=== PATIENT | female | born 1990 | race Caucasian/White ===

== ENCOUNTER 2018-11-12 14:17 | Emergency (ER) | payer MEDICAID ==
[~2018-11-12] VITALS: Ht 160 cm; Wt 67.6 kg
[2018-11-12 14:24] VITALS: BP 128/79
--- NOTE | 2018-11-12 14:27 | NUR ---
VSS, PT AMB TO LOBBY, NO DISTRESS.
--- NOTE | 2018-11-12 15:33 | NUR ---
PT RE-EVALUATED, VSS. AMB TO LOBBY.
--- NOTE | 2018-11-12 16:51 | NUR ---
PT AMBULATES TO BED 3
--- NOTE | 2018-11-12 16:59 | NUR ---
28Y/F BIB SELF WITH C/O ABNORMAL VAGINAL BLEEDING WITH ABD PAIN, NAUSEA, AND VOMITING X 2 WEEKS. PAIN 8/10, INTERMITTENT. ACTIVE X4 QUAD, LBM: 11/11/18, ACTIVE BOWEL SOUNDS, PT IS AAOX4, VSS, BED DOWN , BEDRAIL UP X 1, ER MD AWARE AND NOTIFIED OF PT STATUS. HX: DENIES RX: DENIES
--- NOTE | 2018-11-12 17:35 | NUR ---
LAB AT BEDSIDE
[2018-11-12 17:54] LABS: BILIRUBIN,URINE NEGATIVE (NEGATIVE); BLOOD, URINE 3+ (NEGATIVE); COLOR,URINE YELLOW (YELLOW); LEUKOCYTE ESTERASE ,URINE NEGATIVE (NEGATIVE); NITRITE, URINE NEGATIVE (NEGATIVE); UGLUCOSE NEGATIVE (NEGATIVE)
[2018-11-12 17:55] LABS: APPEARANCE,URINE HAZY (CLEAR)
[2018-11-12 17:57] LABS: RBC,URINE 20-50 /HPF (0-5); WBC,URINE 0-5 /HPF (0-5)
[2018-11-12 18:01] LABS: BARBITURATE, URINE NEG. ng/ml (NEG <=200); BENZODIAZEPINE, URINE NEG. ng/mL (NEG <=200); CANNABINOID, URINE NEG. ng/mL (NEG <=50); COCAINE, URINE NEG. ng/mL (NEG <=300); OPIATE, URINE NEG. ng/mL (NEG <=2000); PHENCYCLIDINE SCREEN,URINE NEG. ng/mL (NEG <=25)
--- NOTE | 2018-11-12 18:04 | NUR ---
ultrasound at bedside
[2018-11-12 18:28] LABS: BASOPHILS # (AUTO) 0.1 K/uL (0.00-0.22); BASOPHILS % (AUTO) 0.7 % (0.0-2.0); EOSINOPHILS # (AUTO) 0.2 K/uL (0-0.4); HEMATOCRIT 41.5 % (36-48); HEMOGLOBIN 14.1 g/dL (12.0-16.0); LYMPHOCYTES % (AUTO) 26.9 % (20.5-51.1); MEAN CORPUSCULAR HEMOGLOBIN 30 pg (27-31); MEAN CORPUSCULAR HGB CONC 34 g/dL (33-37); MEAN CORPUSCULAR VOLUME 88.7 fL (80-94); MONOCYTES # (AUTO) 0.6 K/uL (0.8-1.0); MONOCYTES % (AUTO) 8.5 % (1.7-9.3); NEUTROPHILS # (AUTO) 4.7 K/uL (1.8-7.7); NEUTROPHILS % (AUTO) 61.9 % (42.2-75.2); PLATELET COUNT (AUTO) 197 K/uL (140-450); RED BLOOD CELL COUNT(AUTO) 4.69 MIL/uL (4.20-5.40); WHITE BLOOD COUNT (AUTO) 7.6 K/uL (4.8-10.8)
[2018-11-12] MEDS ORDERED: KETOROLAC 60 MG/2 ML VIAL IM ONE (18:55)
[2018-11-12 19:41] VITALS: BP 121/78
== END 2018-11-12 19:41 | disposition home or self-care (01) ==
LOC: MED 14:17
DX: N94.6 Dysmenorrhea, unspecified (principal); Z97.5 Presence of (intrauterine) contraceptive device
CPT/HCPCS: 36415; 76830; 80305; 81001; 81025; 85025; 96372; 99284; J1885; Q0092